=== PATIENT | female | born 1995 | race Caucasian/White ===

== ENCOUNTER 2024-08-08 15:45 | Emergency (ER) | payer OTHER, SELFPAY ==
[2024-08-08 15:49] VITALS: BP 108/67
[2024-08-08 16:56] VITALS: BMI 26.3
[2024-08-08] MEDS: NSS 1000 IV (17:02)
--- NOTE | 2024-08-08 17:03 | ED.GENMED ---
History of Present Illness
General
Chief Complaint: Flank Pain
Source: patient
Exam Limitations: none
Time Seen by Provider: 08/08/24 16:45
Nursing documentation reviewed up to this point in time: agreed with
History of Present Illness
History of Present Illness:
Patient is a 29-year-old female approxi-12 weeks who presents to the ER for evaluation. This morning she started with headache fevers as high as 100, chills. She also noticed that when she has the urge to urinate only a small amt urine
comes out at a time. Has right flank pain. She did vomit several times around 1 PM.
She denies any abdominal pain cramping or vaginal bleeding. She denies any coughing. She is followed by [facility] and has seen Dr. Mcdonald.
She has had 2 normal ultrasounds 1 at 9 weeks and 112 weeks with an estimated due date of 02/18.
Review of Systems
Review of Systems
Allergies reviewed?: Yes
All Other Systems: ROS reviewed and negative except as documented in HPI and ROS
Constitutional: Reports fever and chills
EENT: Reports other (nasal congestion)
Respiratory: Reports cough; Denies trouble breathing
Cardiac: Reports no symptoms
ABD/GI: Reports nausea and vomiting; Denies abdominal pain
: Reports flank pain, difficulty voiding and urgency
Musculoskeletal: Reports other (right flank pain )
Skin: Reports no symptoms
Neurological: Reports no symptoms
Psychiatric: Reports no symptoms
Phy Exam
General Physical Exam
General Presentation: no apparent distress
General age: appears stated age
General Skin: warm and dry
General Habitus: normal
General Mental: alert
General Hydration: appears well hydrated
Cardiovascular Exam
Cardiovascular Exam: regular rate/rhythm, no murmur and normal peripheral pulses
Pulmonary Exam
Pulmonary Exam: lungs clear and no respiratory distress
Gastrointestinal Exam
Gastrointestinal Exam: normal bowel sounds, non tender and soft
Neurological Exam
Neurological Exam: alert and oriented x3
Musculoskeletal Exam
Musculoskeletal Exam: full ROM and other (point tender to left lateral paraspinal lumbar/thoracic region no cva tenderness )
Skin Exam
Skin Exam: normal color and warm/dry
Psychiatric Exam
Psychiatric Exam: normal mood/affect
Course
Orders/Labs/Results
Orders:
Orders
08/08/24 16:46
IV Insert/Care/Rem.- Treatment PRN
0.9% Sodium Chloride 1000 ml [Nss] 1,000 ml IV BOLUS
08/08/24 16:58
Complete Blood Count/With Diff Urgent
Comprehensive Metabolic Panel Urgent
Urinalysis Reflex To Culture Urgent
Date Specimen was Collected: 08/08/24
Time Specimen was Collected: 16:55
08/08/24 17:13
COVID-19 Antigen Urgent
Source: Nasal Swab
Influenza A+B Rapid Molecular Urgent
AVILA Source: Nasal Swab
Specimen Description:
08/08/24 17:15
Heart Tones ONCE
08/08/24 17:25
Acetaminophen [Tylenol] 650 mg PO NOW STA
Abnormal Lab Results
08/08/24
16:58
Abs Immat Gran (auto) 0.1 H 10^3/uL
(0-0.05)
Absolute Neuts (auto) 6.9 H 10^3/uL
(1.4-6.5)
Absolute Lymphs (auto) 0.5 L 10^3/uL
(1.2-3.4)
Absolute Monos (auto) 0.8 H 10^3/uL
(0.1-0.6)
Immature Gran % 0.8 H %
(0-0.5)
Neutrophils % 82.5 H %
(42.2-75.2)
Lymphocytes % 5.8 L %
(20.5-51.1)
Monocytes % 9.8 H %
(1.7-9.3)
Carbon Dioxide 20 L mmol/L
(22-30)
BUN 6 L mg/dl
(7-17)
Urine Ketones 3+ A
(Negative)
08/08/24 16:58
08/08/24 16:58
Vital Signs
Initial and Last Documented VS:
Initial Vital Signs
Temp Pulse Resp BP Pulse Ox
98.8 F 87 16 108/67 99
08/08/24 15:49 08/08/24 15:49 08/08/24 15:49 08/08/24 15:49 08/08/24 15:49
Last Documented Vital Signs
Temp Pulse Resp BP Pulse Ox
100.3 F 94 16 112/62 99
08/08/24 17:17 08/08/24 18:00 08/08/24 17:17 08/08/24 18:00 08/08/24 18:00
Psychology Clinician consulted with Physician
Psychology Clinician consulted with physician?: Yes
Name of Physician Consulted: laly
MDM/Problems Addressed
MDM/Problems Addressed:
As documented patient is a 12-week female who presented with bodyaches headache fever chills. She vomited several times afternoon and then started with some right back pain. She also felt some urgency to urinate and reported she was not
urinating as much is normally. She present here awake alert no acute distress initial temp is 98.8 but she did increase to 100.3. She has normal neurologic exam no meningismus white count is normal hemoglobin stable and chemistries unremarkable.
Abdomen soft nontender. She has no complaints abdominal pain or vaginal bleeding. No CVA tenderness. She is point tender to the lumbar region of her back, urine is negative for infection(pt was able to fully urinate normally ) with patient being
point tender possibility of patient having muscle pain from vomiting she believes it started after vomiting. There is no evidence of infection/pyelonephritis there is no blood in her urine consistent with kidney stone. She is negative for
COVID-negative flu likely viral syndrome. She has no complaints of cough.
Normal heart tones
Case discussed with ED physician
*Critical Care Note
Total Time (30-74mins, 75-104mins- exclusive of procedures): Not Applicable
ED Attending Note
-
Portions of this chart may have been created with voice recognition software.� Occasional wrong word or��sound alike� substitutions may have occurred due to the inherent limitations of voice recognition software.
Discharge Plan
Departure
Patient Disposition: Home (Routine Discharge)
Date of Disposition: 08/08/24
Time of Disposition: 18:29
Patient with high blood pressure during this ER visit?: No
Covid-19: Not Applicable
Discharge Problem:
Acute viral syndrome
Instructions: Viral Exanthem (DC)
Prescriptions:
No Action
loratadine [Claritin] 10 mg Tablet
10 mg PO DAILY
Vitamin Tablet
1 tab PO DAILY
[place] 3 Capsule
1 cap PO DAILY
Referrals:
Cristela Simmons CRNP [Family Provider] -
Activity Restrictions/Additional Instructions:
As discussed symptoms are likely viral syndrome. Increase fluid intake. You may take Tylenol for fever chills body aches. Return if any worsening of symptoms including worsening fevers back pain vomiting abdominal pain vaginal bleeding or any
further concerns. Follow-up with your family doctor the next several days return if any worsening of symptoms.
Interventions
Interventions:
*Risk Screen - Suicide Last Done: 08/08/24 15:52
*Neglect/Abuse Screening Last Done: 08/08/24 15:52
*ED COVID-19 Vaccine History Last Done: 08/08/24 15:52
VO-Tdyyqs-Ccxcufefhq Assessment Last Done: 08/08/24 17:17
ED-Female Genitourinary Assessment Last Done: 08/08/24 17:17
Discharge Date and Time
Print Language: ICELANDIC
[2024-08-08 17:16] LABS: % Basophils 0.5 % (0-2); % Eosinophils 0.6 % (0-6); % Immature Granulocytes 0.8 % (0-0.5); % Lymphocytes 5.8 % (20.5-51.1); % Monocytes 9.8 % (1.7-9.3); % Neutrophils 82.5 % (42.2-75.2); Absolute Eosinophils 0.1 10^3/uL (0-0.7); Absolute Immature Granulocytes 0.1 10^3/uL (0-0.05); Absolute Lymphocytes 0.5 10^3/uL (1.2-3.4); Absolute Monocytes 0.8 10^3/uL (0.1-0.6); Absolute Neutrophils 6.9 10^3/uL (1.4-6.5); Hematocrit 38.8 % (37.0-47.0); Hemoglobin 13.4 g/dL (12.0-16.0); Mean Corp Hgb Conc. 34.5 g/dL (33.0-37.0); Mean Platelet Volume 9.4 fL (7.4-10.4); Nucleated Red Blood Cells % 0 %; Platelet Count 263 10^3/uL (130-400); Red Blood Cell Count 4.46 10^6/uL (4.20-5.40); Red Cell Dist. Width 11.9 % (11.5-14.5); White Blood Cell Count 8.4 10^3/uL (4.8-10.8)
[2024-08-08 17:17] VITALS: BP 110/61
[2024-08-08 17:17] LABS: Urine Albumin Negative (Neg - Trace); Urine Bilirubin Negative (Negative); Urine Character Clear (Clear); Urine Color Yellow; Urine Glucose Negative (Negative); Urine Ketone 3+ (Negative); Urine Leukocyte Negative (Negative); Urine Nitrite Negative (Negative); Urine Occult Blood Negative (Negative); Urine Urobilinogen Negative (Neg - 1+)
--- NOTE | 2024-08-08 17:19 | EDRN ---
Pt G1A0P0 12 weeks. Pt woke not feeling well with headache, sinus pressure and body aches. Around 1200, pt developed R flank pain and a fever of 100.3. Pt did not take anything for fever/pain. Pt had nausea and vomited 6-7 times. Pt notes she
does not feel she empties her bladder. No burning with urination of blood in urine noted. Pt denies cp, sob, abd pain, dizziness, weakness. No known ill contacts however pt has been to couple gathering recently with 100+ people.
[2024-08-08 17:40] LABS: ALT (SGPT) 32 U/L (0-35); AST (SGOT) 33 U/L (14-36); Albumin 4.6 g/dl (3.5-5.0); Alkaline Phosphatase 59 U/L (38-126); Blood Urea Nitrogen 6 mg/dl (7-17); Calcium 9.6 mg/dl (8.4-10.2); Carbon Dioxide 20 mmol/L (22-30); Chloride 100 mmol/L (98-107); Estimated Creatinine Clearance 108 ml/min; Glucose 90 mg/dl (70-99); Potassium 3.8 mmol/L (3.5-5.1); Sodium 136 mmol/L (135-145); Total Bilirubin 0.4 mg/dl (0.2-1.3); Total Protein 7.6 g/dl (6.3-8.2); eGFR > 60.00
[2024-08-08 17:47] LABS: COVID-19 Antigen Negative (Negative)
[2024-08-08] MEDS: TYLENOL 650 MG PO (17:54)
[2024-08-08 18:00] VITALS: BP 112/62
--- NOTE | 2024-08-08 18:04 | EDRN ---
HYX=[id number]
== END 2024-08-08 19:00 | disposition home or self-care (01) ==
LOC: EMR 15:45
PROVIDERS: Nurse Practitioner; EMERGENCY PHYSICIAN Emergency Medicine; FAMILY PHYSICIAN Nurse Practitioner Adult Health
DX: O98.511 Other viral diseases complicating pregnancy, first trimester (principal); B34.9 Viral infection, unspecified; Z3A.12 12 weeks gestation of pregnancy; Z11.52 Encounter for screening for COVID-19
CPT/HCPCS: 99284; 96360; 80053; 81003; 85025; 87086; 87502; 87811

== ENCOUNTER → 2024-11-13 06:38 | Outpatient (REF) | payer BC, SELFPAY | LOC: HWRAD 06:38 | PROVIDERS: ATTENDING PHYSICIAN Obstetrics & Gynecology; FAMILY PHYSICIAN Nurse Practitioner Adult Health | DX: R10.11 Right upper quadrant pain (principal) | CPT/HCPCS: 76700 ==

== ENCOUNTER 2025-02-23 08:03 | Inpatient (IN) | payer BC, SELFPAY ==
[2025-02-23 08:36] VITALS: BP 142/77; BMI 32.4
[2025-02-23 09:38] LABS: % Basophils 0.4 % (0-2); % Eosinophils 1.4 % (0-6); % Immature Granulocytes 1.3 % (0-0.5); % Lymphocytes 12.4 % (20.5-51.1); % Monocytes 6.9 % (1.7-9.3); % Neutrophils 77.6 % (42.2-75.2); Absolute Basophils 0.1 10^3/uL (0-0.2); Absolute Eosinophils 0.2 10^3/uL (0-0.7); Absolute Immature Granulocytes 0.2 10^3/uL (0-0.05); Absolute Lymphocytes 1.7 10^3/uL (1.2-3.4); Absolute Neutrophils 10.9 10^3/uL (1.4-6.5); Hematocrit 39.2 % (37.0-47.0); Hemoglobin 13.5 g/dL (12.0-16.0); Mean Corp Hgb Conc. 34.4 g/dL (33.0-37.0); Mean Corpuscular Hgb 30.1 pg (27.0-31.0); Mean Corpuscular Volume 87.3 fL (81.0-99.0); Mean Platelet Volume 9.8 fL (7.4-10.4); Nucleated Red Blood Cells % 0 %; Platelet Count 288 10^3/uL (130-400); Red Blood Cell Count 4.49 10^6/uL (4.20-5.40); Red Cell Dist. Width 13.5 % (11.5-14.5)
[2025-02-23 09:43] LABS: ALT (SGPT) 18 U/L (0-35); AST (SGOT) 21 U/L (14-36); Alkaline Phosphatase 165 U/L (38-126); Blood Urea Nitrogen 11 mg/dl (7-17); Carbon Dioxide 19 mmol/L (22-30); Chloride 111 mmol/L (98-107); Estimated Creatinine Clearance > 125 ml/min; Glucose 94 mg/dl (70-99); Potassium 4.7 mmol/L (3.5-5.1); Sodium 136 mmol/L (135-145); Total Bilirubin 0.4 mg/dl (0.2-1.3); eGFR > 60.00
[2025-02-23] MEDS: PITOCIN 30 UNITS/NSS 500 ML IV (10:44)
[2025-02-23 11:57] LABS: Protein/creatinine Ratio 1.1; Urine Protein 31 mg/dl
[2025-02-23] MEDS: STADOL 1 MG IV (14:31)
[2025-02-23] MEDS: FENTANYL/BUPIVACAINE 100 EPIDURAL (17:00)
[2025-02-23] MEDS: SUBLIMAZE 100 MCG EPIDURAL (17:00)
[2025-02-24] MEDS: FENTANYL/BUPIVACAINE 100 EPIDURAL (01:43)
[2025-02-24] MEDS: LR 1000 IV (01:46)
[2025-02-24] MEDS: TYLENOL 1000 MG PO (09:29)
[2025-02-24] MEDS: ANCEF 10 IV (09:29)
[2025-02-24] MEDS: BICITRA 30 ML PO (09:29)
[2025-02-24] MEDS: ZITHROMAX INFUSION 250 IV (10:00)
[2025-02-24] MEDS: TORADOL 15 MG IV ×2 (12:46→18:54)
[2025-02-25] MEDS: TORADOL 15 MG IV ×2 (00:32→06:27)
[2025-02-25 06:02] LABS: Hematocrit 26.1 % (37.0-47.0); Hemoglobin 8.9 g/dL (12.0-16.0); Mean Corp Hgb Conc. 34.1 g/dL (33.0-37.0); Mean Corpuscular Hgb 30.4 pg (27.0-31.0); Mean Corpuscular Volume 89.1 fL (81.0-99.0); Mean Platelet Volume 9.9 fL (7.4-10.4); Platelet Count 202 10^3/uL (130-400); Red Blood Cell Count 2.93 10^6/uL (4.20-5.40); Red Cell Dist. Width 13.9 % (11.5-14.5); White Blood Cell Count 23.9 10^3/uL (4.8-10.8)
[2025-02-25] MEDS: FEOSOL 325 MG PO (08:33)
[2025-02-25] MEDS: PRENATAL PLUS 1 TABLET PO (08:33)
[2025-02-25] MEDS: MYLICON 80 MG PO ×2 (08:33→17:18)
[2025-02-25] MEDS: CLARITIN 10 MG PO (08:33)
[2025-02-25] MEDS: SENOKOT-S 1 TABLET PO (08:33)
--- NOTE | 2025-02-25 10:42 | W.PN.ANS.POP ---
Anesthesia Post Operative
- Anesthesia Post Op Note
Vital Signs Stable-See Nursing Note: Yes
Airway Patent: Yes
Adequate Pain Control: Yes
Change in Mental Status: No
Current Postoperative Nausea & Vomiting: No
Anesthesia Complications: No
General Anesthetic Recall: No
Unplanned Admission: No
Post Op Hydration Adequate: Yes
[2025-02-25] MEDS: MOTRIN 600 MG PO ×3 (11:58→23:40)
--- NOTE | 2025-02-25 16:38 | DOWNTIME ---
There was a [employer] Downtime on 02/25/2025 from 1230 to 02/25/2025 at 1550. Downtime documentation of patient's care, including medication administrations, has been reconciled in the electronic record per guidelines. Refer to the
patient's paper chart under the miscellaneous tab to see printed paper medication records and downtime forms.
[2025-02-25] MEDS: PERCOCET 5/325 1 TABLET PO (21:16)
[2025-02-26] MEDS: PERCOCET 5/325 1 TABLET PO ×2 (04:11→21:18)
[2025-02-26] MEDS: MYLICON 80 MG PO ×3 (06:25→21:18)
[2025-02-26] MEDS: MOTRIN 600 MG PO ×3 (06:25→19:55)
[2025-02-26] MEDS: PRENATAL PLUS 1 TABLET PO (08:20)
[2025-02-26] MEDS: CLARITIN 10 MG PO (08:20)
[2025-02-26] MEDS: FEOSOL 325 MG PO (08:21)
[2025-02-26] MEDS: SENOKOT-S 1 TABLET PO (08:21)
[2025-02-26] MEDS: TYLENOL 650 MG PO ×2 (10:41→16:44)
[2025-02-27] MEDS: PERCOCET 5/325 1 TABLET PO (04:39)
[2025-02-27] MEDS: MOTRIN 600 MG PO (04:42)
[2025-02-27] MEDS: PRENATAL PLUS 1 TABLET PO (08:06)
[2025-02-27] MEDS: SENOKOT-S 1 TABLET PO (08:06)
[2025-02-27] MEDS: FEOSOL 325 MG PO (08:07)
[2025-02-27] MEDS: CLARITIN 10 MG PO (08:11)
[2025-02-27] MEDS: TYLENOL 650 MG PO (08:41)
[2025-02-27 12:15] LABS: Syphilis/T. pallidum Ab Reflex Negative (Negative)
== END 2025-02-27 13:51 | disposition home or self-care (01) | DRG 788 ==
LOC: LDRP 08:03
PROVIDERS: Obstetrics & Gynecology; ADMITTING PHYSICIAN Obstetrics & Gynecology; ATTENDING PHYSICIAN Obstetrics & Gynecology; FAMILY PHYSICIAN Nurse Practitioner Adult Health
PROC: 10D00Z1 Extraction of Products of Conception, Low, Open Approach (ICD-10-PCS; 2025-02-24)
DX: O48.0 Post-term pregnancy (principal); Z3A.40 40 weeks gestation of pregnancy; Z37.0 Single live birth; O62.1 Secondary uterine inertia; O42.92 Full-term premature rupture of membranes, unspecified as to length of time between rupture and onset of labor; O32.8XX0 Maternal care for other malpresentation of fetus, not applicable or unspecified
CPT/HCPCS: 36415; 80053; 82570; 84156; 85025; 85027; 86780; 86850; 86900; 86901

== ENCOUNTER 2025-04-24 13:54 | Outpatient (RCR) | payer BC, SELFPAY | END 2025-04-24 23:59 | disposition home or self-care (01) | LOC: RPT 13:54 | PROVIDERS: ATTENDING PHYSICIAN Obstetrics & Gynecology; FAMILY PHYSICIAN Nurse Practitioner Adult Health | DX: M62.89 Other specified disorders of muscle (principal); Z73.6 Limitation of activities due to disability; R10.9 Unspecified abdominal pain; M54.50 Low back pain, unspecified; Z98.891 History of uterine scar from previous surgery | CPT/HCPCS: 97110; 97112; 97140; 97161; 97530 ==

== ENCOUNTER 2025-05-15 09:41 | Outpatient (RCR) | payer BC, SELFPAY | END 2025-05-15 23:59 | disposition home or self-care (01) | LOC: RPT 09:41 | PROVIDERS: ATTENDING PHYSICIAN Obstetrics & Gynecology; FAMILY PHYSICIAN Nurse Practitioner Adult Health | DX: M62.89 Other specified disorders of muscle (principal); Z73.6 Limitation of activities due to disability; R10.9 Unspecified abdominal pain; M54.50 Low back pain, unspecified; Z98.891 History of uterine scar from previous surgery | CPT/HCPCS: 97110; 97112; 97140; 97530 ==

== ENCOUNTER 2025-06-03 10:05 | Outpatient (RCR) | payer BC, SELFPAY | END 2025-06-03 23:59 | disposition home or self-care (01) | LOC: RPT 10:05 | PROVIDERS: ATTENDING PHYSICIAN Obstetrics & Gynecology; FAMILY PHYSICIAN Nurse Practitioner Adult Health | DX: M62.89 Other specified disorders of muscle (principal); Z73.6 Limitation of activities due to disability; R10.9 Unspecified abdominal pain; M54.50 Low back pain, unspecified; Z98.891 History of uterine scar from previous surgery | CPT/HCPCS: 97110; 97112; 97140; 97530 ==

== ENCOUNTER 2025-07-23 14:54 | Outpatient (RCR) | payer BC, SELFPAY | END 2025-07-24 06:40 | disposition home or self-care (01) | LOC: RPT 14:54 | PROVIDERS: ATTENDING PHYSICIAN Obstetrics & Gynecology; FAMILY PHYSICIAN Nurse Practitioner Adult Health | DX: M62.89 Other specified disorders of muscle (principal); Z73.6 Limitation of activities due to disability; R10.9 Unspecified abdominal pain; M54.50 Low back pain, unspecified; Z98.891 History of uterine scar from previous surgery | CPT/HCPCS: 97110; 97112; 97140; 97530 ==

== ENCOUNTER → 2025-08-21 16:14 | Outpatient (REF) | payer BC, SELFPAY | LOC: RAD 16:14 | PROVIDERS: ATTENDING PHYSICIAN Nurse Practitioner Adult Health | DX: M25.551 Pain in right hip (principal) | CPT/HCPCS: 73502 ==

== ENCOUNTER 2025-09-29 14:57 | Outpatient (RCR) | payer BC, SELFPAY | END 2025-09-29 23:59 | disposition home or self-care (01) | LOC: RPT 14:57 | PROVIDERS: ATTENDING PHYSICIAN Nurse Practitioner Adult Health | DX: M25.551 Pain in right hip (principal); Z73.6 Limitation of activities due to disability | CPT/HCPCS: 97110; 97161; 97530 ==